=== PATIENT | female | born 1955 | race Two or more races ===

== ENCOUNTER 2025-04-01 02:48 | Inpatient (IN) | payer MEDICARE, OTHER ==
[~2025-04-01] VITALS: Ht 162.6 cm; Wt 69.4 kg
[2025-04-01] MEDS ORDERED: REMEDY ESSENTIAL ZINC PASTE 113 GM TP PRN (03:15)
[2025-04-01] MEDS ORDERED: ACETAMINOPHEN 325 MG TABLET PO PRN (04:00)
[2025-04-01] MEDS ORDERED: IBUPROFEN 600 MG TABLET PO PRN (04:00)
[2025-04-01] MEDS: IV NS 1000 ML 1,000 ML IV PRN (04:11)
[2025-04-01 04:12] VITALS: BP 138/62; TEMP 96.8; O2SAT 97
[2025-04-01] MEDS: ONDANSETRON 4 MG/2 ML VIAL IV PRN (04:17)
[2025-04-01] MEDS: MORPHINE SULFATE 2 MG/1 ML DISP.SYRIN IV PRN (04:22)
[2025-04-01] MEDS: PANTOPRAZOLE SODIUM 40 MG TABLET.DR PO SCH (06:24)
[2025-04-01 06:37] VITALS: BP 137/65; TEMP 98.9; O2SAT 94
[2025-04-01 07:24] LABS: PLATELET COUNT (AUTO) 180 K/uL (179-408); RED BLOOD CELL COUNT(AUTO) 4.57 MIL/uL (3.63-4.92); RED CELL DISTRIBUTION WIDTH 13.6 % (12.3-17.7); WHITE BLOOD COUNT (AUTO) 4.7 K/uL (3.8-11.8)
[2025-04-01 07:41] LABS: CREATININE 0.5 mg/dL (0.6-1.3); SODIUM SERUM 145.0 mmol/L (136-145); UREA NITROGEN, BLOOD 9.0 mg/dL (7-18)
[2025-04-01 07:46] VITALS: BP_SYST 122; BP_SYST 145; BP_DIAS 58; BP_DIAS 59; TEMP 97.9; TEMP 98.6; O2SAT 96; O2SAT 99
[2025-04-01] MEDS: MAGNESIUM HYDROXIDE 30 ML LIQUID UDC PO PRN (08:38)
[2025-04-01] MEDS ORDERED: ENOXAPARIN SODIUM 40 MG/0.4 ML DISP.SYRIN SQ SCH (09:00)
[2025-04-01] MEDS: ENOXAPARIN SODIUM 40 MG/0.4 ML DISP.SYRIN SQ SCH (10:03)
[2025-04-01] MEDS ORDERED: IBUP-1957 PO (10:58)
[2025-04-01] MEDS ORDERED: MIDO2.5T PO (10:58)
[2025-04-01] MEDS ORDERED: SENN-261 PO (10:58)
[2025-04-01 11:27] VITALS: BP 107/52; TEMP 98.2; O2SAT 98
[2025-04-01] MEDS ORDERED: MIDODRINE HCL 2.5 MG TABLET PO PRN (13:45)
[2025-04-01] MEDS ORDERED: SENNOSIDES 1 TABLET PO PRN (13:45)
[2025-04-01] MEDS: MIDODRINE HCL 2.5 MG TABLET PO SCH (15:17)
[2025-04-01] MEDS: LIDOCAINE 5% PATCH TD SCH (15:17)
[2025-04-01 15:19] VITALS: BP 98/39; TEMP 98.6; O2SAT 95
[2025-04-01] MEDS: LORAZEPAM 0.5 MG TABLET PO PRN (20:18)
[2025-04-02 00:08] VITALS: BP 147/52; TEMP 98.3; O2SAT 98
[2025-04-02 05:26] VITALS: BP 152/57
[2025-04-02 06:37] LABS: PLATELET COUNT (AUTO) 175 K/uL (179-408); RED BLOOD CELL COUNT(AUTO) 4.26 MIL/uL (3.63-4.92); RED CELL DISTRIBUTION WIDTH 13.8 % (12.3-17.7); WHITE BLOOD COUNT (AUTO) 4.3 K/uL (3.8-11.8)
[2025-04-02 06:50] LABS: CREATININE 0.6 mg/dL (0.6-1.3); SODIUM SERUM 140.0 mmol/L (136-145); UREA NITROGEN, BLOOD 9.0 mg/dL (7-18)
[2025-04-02 07:28] VITALS: BP 136/55; TEMP 98.8; O2SAT 96
[2025-04-02] MEDS: LIDOCAINE 5% PATCH TD SCH (08:48)
[2025-04-02 11:24] VITALS: BP 111/44; TEMP 98.6; O2SAT 96
[2025-04-02] MEDS ORDERED: LEVO750T46 PO (12:54)
[2025-04-02] MEDS ORDERED: LIDO30AD10 TD (12:54)
[2025-04-02] MEDS ORDERED: MIDO2.5T2 PO (12:54)
[2025-04-02] MEDS ORDERED: PANT40TA49 PO (12:54)
[2025-04-02 13:58] VITALS: BP 111/44
[2025-04-02] MEDS ORDERED: LIDOCAINE 5% PATCH TD SCH (15:00)
== END 2025-04-02 15:50 | disposition home or self-care (01) | DRG 698 ==
LOC: TELE3 02:48 → MEDSURG3 04-02 09:15
PROVIDERS: ADMIT Registered Nurse Psychiatric/Mental Health; ATTEND Nurse Practitioner Acute Care
DX: T83.511A Infection and inflammatory reaction due to indwelling urethral catheter, initial encounter (principal); A41.9 Sepsis, unspecified organism; G82.20 Paraplegia, unspecified; N39.0 Urinary tract infection, site not specified; Z87.440 Personal history of urinary (tract) infections; E86.0 Dehydration; F41.9 Anxiety disorder, unspecified; R00.1 Bradycardia, unspecified; S14.106S Unspecified injury at C6 level of cervical spinal cord, sequela; S12.500S Unspecified displaced fracture of sixth cervical vertebra, sequela; V89.2XXS Person injured in unspecified motor-vehicle accident, traffic, sequela; Z87.442 Personal history of urinary calculi
CPT/HCPCS: 36415; 83735; 84100; 85025; G0378; J1650; J1956; J2270; J2405; J7040